=== PATIENT | male | born 1985 | race African-American/Black ===

== ENCOUNTER 2019-04-08 08:07 | Emergency (ER) | payer OTHER ==
[~2019-04-08] VITALS: Ht 182.9 cm; Wt 91.0 kg
[2019-04-08 08:24] VITALS: BP 155/82
[2019-04-08] MEDS ORDERED: IBUPROFEN 600MG TABLET PO ONE (10:45)
== END 2019-04-08 11:48 | disposition home or self-care (01) ==
LOC: ER 08:07
DX: S39.012A Strain of muscle, fascia and tendon of lower back, initial encounter (principal); X58.XXXA Exposure to other specified factors, initial encounter; Y93.89 Activity, other specified; Y92.89 Other specified places as the place of occurrence of the external cause; R03.0 Elevated blood-pressure reading, without diagnosis of hypertension
CPT/HCPCS: 72100; 99283